=== PATIENT | female | born 1960 | race Caucasian/White ===

== ENCOUNTER 2016-07-29 15:19 | Emergency (ER) | payer OTHER ==
[2016-07-29 15:28] VITALS: BP 135/79; PULSE 105; RESP 16; TEMP 98.2; O2SAT 96
--- NOTE | 2016-07-29 15:33 | UCPHY ---
H & P Time Seen by Provider: 07/29/16 15:33 Patient Type: Established HPI/ROS: 55-year-old female presents complaining of lower back pain of 1 day's duration She states she actually has had back pain off and on for 10 years and this episode has recently been exacerbated by the fact she has no place to live and she has been sleeping at her place of work and then last night slept at a relative's house in a different physician and that likely exacerbated her pain. She denies numbness or tingling in her extremities she denies loss of bowel or bladder control. Review of systems As per HPI General no fever no chills no weakness HEENT no eye pain no eye discharge. No eye redness, no sore throat Respiratory no cough, no shortness of breath Cardiac no chest pain, no peripheral edema GI no abdominal pain, no diarrhea, no constipation, no nausea, no vomiting no flank pain, no hematuria, no dysuria Musculoskeletal positive myalgias, no joint pain Heme no easy bruising, no easy bleeding Endo no polyuria, no polydipsia Skin no rashes, no pruritus Neuro no syncope, no dizziness, no headaches Psych is no suicidal ideation, no homicidal ideation Past Medical/Surgical History: Chronic back pain Social History: Denies alcohol or drug use Smoking Status: Never smoked Physical Exam: 55-year-old female alert and oriented no acute distress nontoxic appearance Alert and oriented in no acute distress nontoxic appearance, afebrile Atraumatic normocephalic Neck no JVD Lungs clear to auscultation, no respiratory distress Heart regular rate and rhythm Back-no CVA tenderness, no step-offs no ecchymosis no swelling no rash Mild paralumbar tenderness to palpation, negative straight leg raise Extremities no cyanosis clubbing edema Constitutional: Initial Vital Signs Temperature (C) 36.8 C 07/29/16 15:24 Heart Rate 105 H 07/29/16 15:24 Respiratory Rate 16 07/29/16 15:24 Blood Pressure 135/79 H 07/29/16 15:24 O2 Sat (%) 96 07/29/16 15:24 O2 Delivery Mode Room Air Allergies/Adverse Reactions: No Known Allergies Allergy (Unverified 07/29/16 15:28) Home Medications: Medication Instructions Recorded Effexor Xr 03/13/11 Hydrocodone/Acetaminophen [[place] 1 - 2 tab PO Q6H PRN #20 tab 07/29/16 5/325 (*)] Methocarbamol 500 mg PO TID #15 tablet 07/29/16 Medical Decision Making ED Course/Re-evaluation: Patient seen and evaluated for lower back pain Physical exam consistent with muscle spasm, musculoskeletal lumbar pain Impression Chronic low back pain Plan Muscle relaxant Follow-up PCP Departure - Departure Disposition: Home, Routine, Self-Care Clinical Impression: Low back pain Condition: Good Instructions: Low Back Strain (ED), Chronic Back Pain (ED) Referrals: ANABELLA GELLER,Raymundo [Primary Care Provider] - As per Instructions Prescriptions: Methocarbamol 500 mg PO TID #15 tablet Hydrocodone/Acetaminophen [[place] 5/325 (*)] 1 - 2 tab PO Q6H PRN #20 tab PRN Reason: Pain, Moderate - PQRS PQRS Measurement: na
== END 2016-07-29 16:00 | disposition home or self-care (01) ==
LOC: CED 15:19
DX: M54.5 Low back pain (principal)
CPT/HCPCS: 99214-PO; G0463-PO

== ENCOUNTER 2016-12-16 21:42 | Emergency (ER) | payer OTHER ==
[2016-12-16 22:01] VITALS: BP 137/85; PULSE 98; RESP 18; TEMP 98.4; O2SAT 95
[2016-12-16] MEDS ORDERED: predniSONE 20 MG TAB PO ONE (22:02)
--- NOTE | 2016-12-16 22:06 | EDPHY ---
H & P Stated Complaint: L lower back pain radiating down L thigh with N/T. 01/24. Time Seen by Provider: 12/16/16 21:56 HPI/ROS: CHIEF COMPLAINT: Sciatic HISTORY OF PRESENT ILLNESS: The patient is a 56-year-old female with a history of sciatica who comes to the emergency department complaining of lower back pain that radiates to her left leg. She does not have difficulty walking. She states that it 1st happened about a month ago and that resolved after a Medrol Dosepak. She then yesterday was helping lift her father out of a wheelchair when she had pain in her back again. It is again radiating down her left leg to her thigh and she has some numbness in the lateral thigh. No loss of strength. No bowel or bladder abnormalities. She is here requesting were steroids. She denies any falls or trauma. REVIEW OF SYSTEMS: Constitutional: denies: chills, fever, recent illness, recent injury EENTM: denies: blurred vision, double vision, nose congestion Respiratory: denies: cough, shortness of breath Cardiac: denies: chest pain, irregular heart rate, lightheadedness, palpitations Gastrointestinal/Abdominal: denies: abdominal pain, diarrhea, nausea, vomiting, blood streaked stools Genitourinary: denies: dysuria, frequency, hematuria, pain Musculoskeletal: See HPI Skin: denies: lesions, rash, jaundice, bruising Neurological: denies: headache, numbness, paresthesia, tingling, dizziness, weakness Hematologic/Lymphatic: denies: blood clots, easy bleeding, easy bruising Immunologic/allergic: denies: HIV/AIDS, transplant EXAM: GENERAL: Moderate pain with movement and bending HEAD: Atraumatic, normocephalic. EYES: Pupils equal round and reactive to light, extraocular movements intact, sclera anicteric, conjunctiva are normal. ENT: TMs normal, nares patent, oropharynx clear without exudates. Moist mucous membranes. NECK: Normal range of motion, supple without lymphadenopathy or JVD. LUNGS: Breath sounds clear to auscultation bilaterally and equal. No wheezes rales or rhonchi. HEART: Regular rate and rhythm without murmurs, rubs or gallops. ABDOMEN: Soft, nontender, normoactive bowel sounds. No guarding, no rebound. No masses appreciated. BACK: No CVA tenderness, no spinal tenderness, step-offs or deformities EXTREMITIES: Normal range of motion, no pitting or edema. No clubbing or cyanosis. NEUROLOGICAL: Cranial nerves II through XII grossly intact. Normal speech, normal gait. 5/5 strength, normal movement in all extremities, normal sensation normal reflexes PSYCH: Normal mood, normal affect. SKIN: Warm, dry, normal turgor, no visible rashes or lesions. Source: Patient Exam Limitations: No limitations - Personal History Current Tetanus Diphtheria and Acellular Pertussis (TDAP): Yes Tetanus Vaccine Date: < 10 YEARS - Medical/Surgical History Hx Asthma: No Hx Chronic Respiratory Disease: No Hx Diabetes: No Hx Cardiac Disease: No Hx Renal Disease: No Hx Cirrhosis: No Hx Alcoholism: No Hx HIV/AIDS: No Hx Splenectomy or Spleen Trauma: No Other PMH: depression, sciatica, tubal ligation, kamilla - Family History Significant Family History: No pertinent family hx - Social History Smoking Status: Never smoked Alcohol Use: Sober Drug Use: None Constitutional: Initial Vital Signs Temperature (C) 36.9 C 12/16/16 21:58 Heart Rate 98 12/16/16 21:58 Respiratory Rate 18 12/16/16 21:58 Blood Pressure 137/85 H 12/16/16 21:58 O2 Sat (%) 95 12/16/16 21:58 O2 Delivery Mode Room Air Allergies/Adverse Reactions: No Known Allergies Allergy (Unverified 12/16/16 21:57) Home Medications: Medication Instructions Recorded Effexor Xr 03/13/11 methylPREDNISolone [Medrol Dose 1 each PO AD #1 ea 12/16/16 Solo] Medical Decision Making ED Course/Re-evaluation: Patient has symptoms consistent with sciatica. I will start her on another steroid course and have her follow up with Neurosurgery. She is happy with this plan and declines further workup or testing. She states that her daughter works at a neurologist office and was told that she could get a free MRI there. The patient is also requesting a short course Vicodin. Differential Diagnosis: Partial list of the Differential diagnosis considered include but were not limited to; radiculopathy, sciatica, low back pain, muscle strain and although unlikely based on the history and physical exam, I also considered infection, spinal mass, cauda equina. I discussed these differential diagnoses and the plan with the patient as well as the usual and expected course. The patient understands that the diagnosis is provisional and that in medicine we are not always correct and that further workup is often warranted. Usual and customary warnings were given. All of the patient's questions were answered. The patient was instructed to return to the emergency department should the symptoms at all worsen or return, otherwise to followup with the physician as we discussed. - Data Points Medications Given: Discontinued Medications Hydrocodone Bitart/Acetaminophen ([place] 5/325mg Prepack#6) 1 btl TAKEHOME EDNOW ONE Stop: 12/16/16 22:26 Last Admin: 12/16/16 22:31 Dose: 1 btl Prednisone (Prednisone) 60 mg PO EDNOW ONE Stop: 12/16/16 22:03 Last Admin: 12/16/16 22:16 Dose: 60 mg Departure - Departure Disposition: Home, Routine, Self-Care Clinical Impression: Sciatica Qualifiers: Laterality: left Qualified Code(s): M54.32 - Sciatica, left side Condition: Fair Instructions: Sciatica (ED) Referrals: ANABELLA GELLER,Raymundo [Primary Care Provider] - As per Instructions Moi Lucero MD [Medical Doctor] - As per Instructions Prescriptions: methylPREDNISolone [Medrol Dose Solo] 1 each PO AD #1 ea
[2016-12-16] MEDS ORDERED: HYDROCOD/APAP 5/325 PREPACK#6 BTL TAKEHOME ONE (22:25)
[2016-12-16] MEDS ORDERED: DEXAMETHASONE 10 MG/ML VIAL ONE (22:30)
== END 2016-12-16 22:35 | disposition home or self-care (01) ==
LOC: CED 21:42
DX: M54.32 Sciatica, left side (principal)

== ENCOUNTER 2017-07-15 17:28 | Emergency (ER) | payer OTHER ==
[2017-07-15] MEDS ORDERED: LET GEL TOPICAL 1 EA SYR TP ONE (17:36)
[2017-07-15 17:38] VITALS: BP 149/102; PULSE 93; RESP 16; TEMP 99.7; O2SAT 95
--- NOTE | 2017-07-15 18:49 | EDPHY ---
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 lacera HPI/ROS: CHIEF COMPLAINT: Scalp laceration HISTORY OF PRESENT ILLNESS: This is a healthy 56-year-old female who presents with scalp laceration as a result of her car mattson falling on to the top of her head while she was feeling windshield white for fluid reservoir. No loss of consciousness. No headache. No neck pain. No confusion. No nausea. No weakness or numbness. No other injuries. REVIEW OF SYSTEMS: A ten point review of systems was performed and is negative with the exception of the items mentioned in the HPI. 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 General Appearance: Alert. Vital signs reviewed. blood pressure 149/102 at triage. Head: 1 cm v-shaped laceration on the left frontal scalp. [place] intact. No significant underlying swelling. No palpable bone deformity. Eyes: Pupils equal and round, no conjunctival injection, no discharge. Anicteric. ENT, Mouth: Mucous membranes are moist, no oropharyngeal erythema or edema. No dental injury. Neck: Nontender to palpation over the cervical spine in the midline. No pain with active range of motion of her neck. Respiratory: Lungs are clear to auscultation; no wheezes, rales, or rhonchi. Cardiovascular: Regular rate and rhythm; no murmur, rub, or gallop. Back: Nontender to palpation over the thoracolumbar spine. No CVAT. Extremities: No lower extremity edema, no calf tenderness or swelling. Neurological: Alert and oriented. Moving all four extremities easily and equally. DALJIT. EOMI. Facial expression symmetric. Tongue midline. Psychiatric: Normal affect. - Personal History Current Tetanus Diphtheria and Acellular Pertussis (TDAP): Yes Tetanus Vaccine Date: 2009 - Medical/Surgical History Hx Asthma: No Hx Chronic Respiratory Disease: No Hx Diabetes: No Hx Cardiac Disease: No Hx Renal Disease: No Hx Cirrhosis: No Hx Alcoholism: No Hx HIV/AIDS: No Hx Splenectomy or Spleen Trauma: No Other PMH: depression, sciatica, tubal ligation, kamilla - Social History Smoking Status: Never smoked Constitutional: Initial Vital Signs Temperature (C) 37.6 C 07/15/17 17:36 Heart Rate 93 07/15/17 17:36 Respiratory Rate 16 07/15/17 17:36 Blood Pressure 149/102 H 07/15/17 17:36 O2 Sat (%) 95 07/15/17 17:36 O2 Delivery Mode Room Air Allergies/Adverse Reactions: No Known Allergies Allergy (Verified 07/15/17 17:35) Home Medications: Medication Instructions Recorded Effexor Xr 03/13/11 Medical Decision Making Procedures: Procedure: Laceration repair. Verbal consent was obtained from the patient. The 1 cm laceration on the right frontal scalp was anesthetized in the usual fashion with lidocaine 1% injection. The wound was irrigated, draped and explored to its base with a gloved finger. There were no deep structures involved. The wound was repaired with 5 surgical dell . The wound repair was single layer, simple. The procedure was performed by myself. ED Course/Re-evaluation: Scalp laceration repaired with surgical dell. The patient's tetanus is up-to -date. Wound care instructions were provided. Differential Diagnosis: I considered a differential diagnosis that includes but is not limited to cervical spine injury, skull fracture, concussion, intracranial hemorrhage, cephalohematoma, and laceration. - Data Points Medications Given: Discontinued Medications Tetracaine/Epinephrine/Lidocaine (Let Gel Topical) 1 ea TP EDNOW ONE Stop: 07/15/17 17:37 Last Admin: 07/15/17 17:40 Dose: 1 ea Departure - Departure Disposition: Home, Routine, Self-Care Clinical Impression: Scalp laceration Qualifiers: Encounter type: initial encounter Qualified Code(s): S01.01XA - Laceration without foreign body of scalp, initial encounter Condition: Good Instructions: Laceration (ED), Staple Care (ED) Additional Instructions: There are 5 dell. They need to be removed in 7 days. Do not wash them for 24 hr, after that it is fine to gently wash your head and hair and pat it dry. Referrals: [facility] [Outside] - As per Instructions
== END 2017-07-15 19:05 | disposition home or self-care (01) ==
LOC: CED 17:28
PROC: 0HQ0XZZ Repair Scalp Skin, External Approach (ICD-10-PCS; principal; 2017-07-15)
DX: S01.01XA Laceration without foreign body of scalp, initial encounter (principal); W20.8XXA Other cause of strike by thrown, projected or falling object, initial encounter